=== PATIENT | female | born 1975 | race Caucasian/White ===

== ENCOUNTER → 2024-05-09 08:14 | Outpatient (REF) | payer BC, SELFPAY | LOC: WDC 08:14 | PROVIDERS: ATTENDING PHYSICIAN Obstetrics & Gynecology; FAMILY PHYSICIAN Physician Assistant | DX: Z12.31 Encounter for screening mammogram for malignant neoplasm of breast (principal) | CPT/HCPCS: 77063; 77067 ==

== ENCOUNTER → 2025-05-22 07:22 | Outpatient (REF) | payer BC, SELFPAY | LOC: WDC 07:22 | PROVIDERS: ATTENDING PHYSICIAN Obstetrics & Gynecology; FAMILY PHYSICIAN Physician Assistant | DX: Z12.31 Encounter for screening mammogram for malignant neoplasm of breast (principal) | CPT/HCPCS: 77063; 77067 ==